=== PATIENT | female | born 1940 | race Caucasian/White ===

== ENCOUNTER → 2016-07-20 | Outpatient (CLI) | payer OTHER ==
[~2016-07-20] VITALS: Ht 170.2 cm; Wt 70.4 kg
[~2016-07-20] MED LIST: ALLER-EASE180 MG PO; AMBIEN 10 MG TA10 MG PO; ARTHROTEC 50 E1 EACH PO; BENADRYL25 MG PO; BENTYL20 MG PO; BRINTELLIX10 MG; CARISOPRODOL 3350 MG PO; CLONAZEPAM 0.50.5 M1 PO; COZAAR 50 MG TA50 M2 PO; HYDROCODON-ACE1 EAC5 PO; HYDROCODON-ACE1 EAC7 PO; IBUPROFEN 200200 M1 PO; LIDODERM 5%1 PATC1 TOP; LYRICA 50 MG50 MG PO; LYRICA 75 MG CA75 MG PO; NORCO 10-325 T1 EACH PO; OMEPRAZOLE 20 M20 M1 PO; OXYCODONE-ACET1 EAC2 PO; PREMARIN0.3 MG PO; VENTOLIN HFA 1818 GM INH; VIIBRYD20 MG PO; VITAMIN B-12500 MCG PO; VITAMIN D-32000 UNIT PO; XANAX 0.5 MG0.5 MG PO; ZANAFLEX4 MG PO; ZOLOFT50 MG PO
--- NOTE | ~2016-07-20 | HPC ---
[facility] [place] [address] PAIN MANAGEMENT CONSULTATION Name: BETO SMITH Room #: REG SHARAD Julio#: [id number] Admission: 07/20/16 Attend Phys: Tono De La Cruz MD Discharge: Date of : 36 Report #: [id number] THIS REPORT FOR: //name// CC: Nancy De La Cruz DATE OF SERVICE: 07/20/2016 Followup visit for chronic back pain with radiculopathy, mid back pain with thoracic spondylosis and management of high risk medication. She just returns to pain clinic today for her medication. She is on oxycodone 10/325 4 times daily. She also uses tizanidine 4 mg 3 times daily. She is cautious with her medications. She safeguards them. She talked today about how she carefully destroys her bottles after they have been used, so that no one knows that she takes a medication. She has grandchildren and great grandchildren who are important to her and she understands she must safeguard these medications from all house. She denies any significant side effects and is grateful for the pain relief that she achieves. She is also reporting that the epidural injection provided some relief and she understands that this will be another tool that we can use rather than increasing medication in the future. MEDICATIONS: Reviewed and reconciled from the pain clinic. She has had no hospitalizations or other critical events since her last visit. PHYSICAL EXAMINATION: GENERAL: Pleasant, alert and oriented with good sense of humor. She shows no signs of anxiety or depression, her pain score is 4 today, mostly in her low back with some radiation into her right thigh with standing. VITAL SIGNS: Blood pressure is 156/72, heart rate 70, her BMI is 24. IMPRESSION: 1. Chronic back pain with radiculopathy, improved by epidural injection. 2. Mid back pain with history of thoracic spondylosis, improved. 3. Management of high risk medication. 4. History of depression and in remission. 5. Chronic obstructive pulmonary disease. Medications renewed under terms of our agreement. [facility] [address] [place] [address] PAIN MANAGEMENT CONSULTATION Name: SARAHBETOAIDAN SULLIVAN Room #: REG CL Julio#: [id number] Admission: 07/20/16 Attend Phys: Tono De La Cruz MD Discharge: Date of : 38 Report #: [id number] PLAN: To follow up in the pain clinic in 3 months. Date of prescriptions were provided for release. By: [id number] Tono De La Cruz MD /nt
[2016-07-20 12:56] VITALS: BP 156/72
== END ==
LOC: PAIN 06:44
DX: M54.10 Radiculopathy, site unspecified (principal); M47.814 Spondylosis without myelopathy or radiculopathy, thoracic region; F32.9 Major depressive disorder, single episode, unspecified; J44.9 Chronic obstructive pulmonary disease, unspecified

== ENCOUNTER → 2016-10-19 | Outpatient (CLI) | payer OTHER ==
[~2016-10-19] VITALS: Ht 175.3 cm; Wt 70.8 kg
--- NOTE | ~2016-10-19 | HPC ---
[facility] [place] [address] PAIN MANAGEMENT CONSULTATION Name: BETO SMITH Room #: REG CLJoy Freddy.#: [id number] Admission: 10/19/16 Attend Phys: Tono De La Cruz MD Discharge: Date of : 38 Report #: [id number] THIS REPORT FOR: //name// CC: Nancy De La Cruz DATE OF SERVICE: 10/19/2016 Followup visit for management of chronic back pain with radiculopathy and spondylosis. Use of higher risk medications under terms of an opioid agreement. The patient returns to Pain Clinic today for a 15-minute followup. She remains on medication to help manage her chronic issues. She has done well with these medications. She denies any significant side effects. She takes oxycodone 10/325 four times daily and some tizanidine at bedtime. She tries not to take the oxycodone at bedtime because it activates her rather than sedates her. This is probably her only side effect and this is certainly not one that influences her during the day. She has mild constipation. She safeguards her medications carefully under terms of our opioid agreement. We discussed today the issues of addiction and role in providing these medications for her. She understands that she has responsibilities as well in using her medicine carefully and cautiously. She is grateful for it. She says if she did not have the medication, she feels that she would not get out of bed on some days, just do simple activities of daily living. PHYSICAL EXAMINATION: She is pleasant and outgoing. Her blood pressure is 159/74, heart rate is 94, respirations 16. She has pain across her low back and thoracic spine. She has some diffuse mild myofascial tenderness consistent with fibromyalgia. She complains of a new pain in the right groin. There is no evidence of hernia on physical exam. IMPRESSION: 1. Chronic intractable back pain with thoracic and lumbar spondylosis. 2. Fibromyalgia. 3. Recent right abdominal pain. I have asked her to follow up with primary to reassess. PLAN: I have renewed her medication. They have been renewed under terms of our opioid agreement. Her maximum daily dose is 16 morphine milligram equivalents, taking 4 oxycodone tablets. She will keep these medications carefully safeguarded. By: [id number] Tono De La Cruz MD /nt
[2016-10-19 10:00] VITALS: BP 159/74
== END | disposition home or self-care (01) ==
LOC: PAIN 07:20
DX: M47.26 Other spondylosis with radiculopathy, lumbar region (principal); M47.24 Other spondylosis with radiculopathy, thoracic region; M79.7 Fibromyalgia; F17.210 Nicotine dependence, cigarettes, uncomplicated

== ENCOUNTER → 2017-01-28 | Outpatient (CLI) | payer OTHER ==
[~2017-01-28] VITALS: Ht 175.3 cm; Wt 68.9 kg
--- NOTE | ~2017-01-28 | HPC ---
[facility] [place] [address] PAIN MANAGEMENT CONSULTATION Name: BETO SMITH Room #: REG Joy Julio#: [id number] Admission: 01/28/17 Attend Phys: Tono De La Cruz MD Discharge: Date of : 38 Report #: [id number] THIS REPORT FOR: //name// CC: Nancy De La Cruz DATE OF SERVICE: 01/28/2017 Followup visit for management of intractable thoracic and lumbar spondylosis and fibromyalgia. The patient is here today for renewal of her medication. She has done well. She has had no problems with her opioid agreement. She is on time with her medication carefully and guards it and has had no significant side effects of note. We discussed her opioid agreement, the opioid crisis and her medications were renewed for her today. She was here for a short visit. She has a cold and so, she was discharged after about 10 minutes. I plan to see her back in 3 months. DISCHARGE MEDICATIONS: Oxycodone 10/325, #120 for an MME of 60 morphine milligrams per day and tizanidine 4 mg 1 tablet taken as needed for muscle relaxation. All other medications reviewed and reconciled. By: [id number] T: [id number] Tono De La Cruz MD /nt
[2017-01-28 14:40] VITALS: BP 140/76
== END ==
LOC: PAIN 07:18
DX: M47.895 Other spondylosis, thoracolumbar region (principal); M79.7 Fibromyalgia

== ENCOUNTER → 2017-05-27 | Outpatient (CLI) | payer OTHER ==
[~2017-05-27] VITALS: Ht 175.3 cm; Wt 68.9 kg
[~2017-05-27] MED LIST changes: +OXYCODONE-APAP1 EAC6 PO
--- NOTE | ~2017-05-27 | HPC ---
[facility] [place] [address] PAIN MANAGEMENT CONSULTATION Name: BETO SMITH Room #: REG [facility] Freddy.#: [id number] Admission: 05/27/17 Attend Phys: Tono De La Cruz MD Discharge: Date of : 38 Report #: [id number] THIS REPORT FOR: //name// CC: Nancy De La Cruz DATE OF SERVICE: 05/27/2017 Followup visit for osteoarthritis, fibromyalgia, spondylosis of the thoracic spine and medication management. I spent 25 minutes today with the patient and her [id number]. She is here today for routine followup. She has pain at a level of about 5 with medication. She describes diffuse pain consistent with fibromyalgia mid back pain and pain in multiple joints, particularly in her knees. She had an evaluation, but is not a candidate for knee replacement. She spent 2 months in [place]. She said she was able to spend a lot of time in the pool. I talked about the benefits of warm weather and pool, but she reports that her pain was no better in [place] than it is here. Her pain is most severe in the mid back with spondylitic pain across the bra line. She has had some injections in the past that provided only temporary relief. PHYSICAL EXAMINATION: GENERAL: She is pleasant, alert and oriented, without signs of overmedication. She is wearing a mask because of a deep cough. VITAL SIGNS: Her blood pressure is 130/61, heart rate 57, respirations 14, BMI is 22.4. MUSCULOSKELETAL: She is able to move easily from sitting to standing position. She can walk without antalgic features. She has pain throughout her back, mostly in the midline about the level of her bra strap with localized tenderness on each side of midline consistent with spondylosis. This is worsened with back extension. She has diffuse myofascial tender points. She has tenderness bilaterally of the knees and pain with standing and walking. IMPRESSION: 1. Chronic mid back pain with thoracic spondylosis. 2. Fibromyalgia. 3. Osteoarthritis, bilateral knees. PQRS review also notes that she continues to smoke. She was counseled. She is now 76 years old and 2 more years, she will be at the average life expectancy for women. She can make her own decision. She understands risks to her. The patient is not a fall risk and has not fallen recently within the last [address] [address] PAIN MANAGEMENT CONSULTATION Name: BETO SMITH Room #: REG SHARAD Kim#: [id number] Admission: 05/27/17 Attend Phys: Tono De La Cruz MD Discharge: Date of : 38 Report #: [id number] She is on multiple medications, which were reviewed and reconciled. I provided for her only pain medications. She is not currently on a blood thinner. She is on a combination of a benzodiazepine along with Roxicodone. Risks have been identified. She has shown good tolerance to this combination. She has an opioid agreement signed in her chart and reviewed and we performed buccal drug screens and urine drug screens as indicated with no evidence of misuse or abuse. I renewed her medications for her and we will have her come back in 3 months. The bulk of our time today was spent in education. Her current morphine milligram equivalent dose is 60. I have convinced her today that it may be best to try and reduce this slightly to 7.5/325 four times daily on her oxycodone. This will equate to a morphine milligram equivalency of 45 MME. She is agreeable to do this and we will see how she does over the next 3 months. Side effects have been addressed as well. Follow up in 3 months. Twenty-five minutes in consultation. By: [id number] Tono De La Cruz MD /nt
[2017-05-27 09:59] VITALS: BP 130/61
== END ==
LOC: PAIN 06:59
DX: M47.894 Other spondylosis, thoracic region (principal); M79.7 Fibromyalgia; M17.0 Bilateral primary osteoarthritis of knee

== ENCOUNTER → 2017-06-23 | Outpatient (CLI) | payer OTHER | LOC: MRI 07:02 | DX: M51.34 Other intervertebral disc degeneration, thoracic region (principal); M47.26 Other spondylosis with radiculopathy, lumbar region; M41.86 Other forms of scoliosis, lumbar region ==

== ENCOUNTER → 2017-09-06 | Outpatient (CLI) | payer OTHER ==
[~2017-09-06] VITALS: Ht 175.3 cm; Wt 72.6 kg
[~2017-09-06] MED LIST changes: +CETIRIZINE HCL5 MG PO; +FLONASE 0.05%50 MCG NASAL; +HYDROCODONE-AP1 EA11 PO; +IBUPROFEN200 M1 PO; +NEURONTIN100 MG PO; +TYLENOL EXTRA500 MG PO
--- NOTE | ~2017-09-06 | HPC ---
[facility] [place] [address] PAIN MANAGEMENT CONSULTATION Name: BETO SMITH Room #: REG [facility] MMario.#: [id number] Admission: 09/06/17 Attend Phys: Tono De La Cruz MD Discharge: Date of : 38 Report #: [id number] THIS REPORT FOR: //name// CC: Nancy De La Cruz DATE OF SERVICE: 09/06/2017 Followup visit for chronic pain, osteoarthritis, fibromyalgia and spondylosis. The patient returns to pain clinic today for renewal of medication. She was last seen on 05/27/2017. She reports that she gets substantial pain relief from her medication. She feels, however, that hydrocodone was more effective for her than similar dose of oxycodone. She would like to transition. Four hydrocodone 7.5/325 tablets per day equals an MME of 30, which is lower than her current morphine milligram equivalency. I have agreed to make that switch. She reports significant analgesia and improvement in day-to-day activities. She has to help care for her and does not feel she could do so without the medication. Constipation is her only side effect. She is able to handle the checkbook. She is cognitively intact without any sort of sedation or other mental effects. Her depression is controlled. She safeguards her medication carefully. PQRS reveals that she is not a fall risk. Her pain score with medication is a 5, sharp and aching in her mid back today and at times as well in her knees and in her muscles from fibromyalgia. She does not smoke. She denies use of alcohol. BMI is 23.6. PHYSICAL EXAMINATION: Reveals a pleasant, alert female. Blood pressure 127/70, heart rate 65, respirations 16. BMI as noted at 23.6. She is able to move independently from sitting to standing position, ambulates without difficulty. Tenderness remains in the mid upper back. Forward flexion and extension all worsen pain in her thoracic spine. She has multiple myofascial tender points consistent with fibromyalgia. Complains of osteoarthritic tenderness of the knees with standing and walking. IMPRESSION: 1. Chronic back pain with thoracic spondylosis. 2. Osteoarthritis. Knees are most bothersome. 3. Fibromyalgia. I discussed smoking with her at last visit. She continues to smoke. She was counseled. [address] [address] PAIN MANAGEMENT CONSULTATION Name: BETO SMITH Room #: REG SHARAD Kim#: [id number] Admission: 09/06/17 Attend Phys: Tono De La Cruz MD Discharge: Date of : 38 Report #: [id number] Before discharge she asked if I would consider gabapentin for her. I agreed to give her a trial of 100 mg at bedtime only and she can increase that to two tablets. I am worried that she has 3 other centrally acting medications that she may take in the evening and that would make her a significant fall risk due to the dizziness associated with gabapentin. She has taken it before for neuropathy and it was recommended by her primary care physician. Precautions were given. She will hold any benzodiazepine medication at night where she may consider the use of gabapentin 100 mg. Followup visit planned in 3 months. By: [id number] Tono De La Cruz MD /nt
[2017-09-06 09:34] VITALS: BP 127/70
== END ==
LOC: PAIN 06:24
DX: M47.814 Spondylosis without myelopathy or radiculopathy, thoracic region (principal); M17.0 Bilateral primary osteoarthritis of knee; M79.7 Fibromyalgia; G89.29 Other chronic pain; Z79.899 Other long term (current) drug therapy

== ENCOUNTER → 2017-12-13 | Outpatient (CLI) | payer OTHER ==
[~2017-12-13] VITALS: Ht 175.3 cm; Wt 70.3 kg
[~2017-12-13] MED LIST changes: +BUSPIRONE HCL7.5 MG PO; +NORVASC5 MG PO; +PRAVACHOL20 MG PO
--- NOTE | ~2017-12-13 | HPC ---
[facility] [place] [address] [place] [address] PAIN MANAGEMENT CONSULTATION Name: BETO SMITH Room #: REG [facility] Freddy.#: [id number] Admission: 12/13/17 Attend Phys: Tono De La Cruz MD Discharge: Date of : 38 Report #: [id number] THIS REPORT FOR: //name// CC: Nancy De La Cruz DATE OF SERVICE: 12/13/2017 REASON FOR FOLLOWUP: Followup visit for chronic intractable back pain with spondylosis. HISTORY OF PRESENT ILLNESS: The patient is a longstanding patient of our clinic. She was first sent to us in [address] Bj Galvan. She has had longstanding thoracic spondylitic central back pain and has also suffered from what she described from day 1 as fibromyalgia. She meets criteria with multiple aches and pains, multiple tender points, depression, and some sleep disturbance. She has received some injections over the course of several years. At first, thoracic facet injections provided some temporary relief of her pain. I provided dose for her while they were helpful. She also received cervical facet injections reporting modest pain relief over a short period of time. Ultimately, she began becoming less responsive to injection therapy. We provided her with medications under terms of written opioid agreement. She was, as I noted in 09/2015, on multiple centrally acting medications including at that time Soma, Xanax, sertraline, Ambien, diphenhydramine. I tried to encourage her to limit medications that were not effective for pain. She did find good relief from oxycodone 10/325. She was allowed to take one tablet 3-4 times daily and consistently reported that the pain medication was helpful providing some temporary relief throughout the day. She showed no signs of addiction, misuse or abuse. In terms of our agreement, we have monitored her medication use and more recently have reviewed her medication use through the [facility] Prescription Drug Monitoring Program. I have reduced her medication as we have tried use the lowest effective dose to hydrocodone 7.5 mg/325 no more than 4 tablets a day, acquitting the morphine milligram equivalency of 30. She was last seen in my clinic on 09/06/2017. In the interim, she saw Dr. Robbins at the request of Dr. Francis. She tells me that she received a burning procedure in her back, which was unhelpful and most recently bilateral transforaminal epidural injections, which also did not provide much lasting relief. When she spoke with Dr. Robbins's office again, she spoke with her nurse practitioner who recommended exercises. She is here today in our clinic requesting [place] [address] PAIN MANAGEMENT CONSULTATION Name: BETO SMITH Room #: REG SHARAD Kim#: [id number] Admission: 12/13/17 Attend Phys: Tono De La Cruz MD Discharge: Date of : 38 Report #: [id number] MEDICATIONS: All medications were reviewed and reconciled. She remains on Tylenol, ibuprofen 400 mg b.i.d., Zyrtec, tizanidine, losartan, omeprazole, alprazolam b.i.d. for anxiety, Zoloft 50 mg two tablets daily, cholecalciferol, vitamin B12, albuterol, and zolpidem 10 mg at bedtime. ALLERGIES: SHRIMP. PHYSICAL EXAMINATION: GENERAL: Somewhat anxious female. She does not show signs of overmedication. She is discouraged by her chronic pain. VITAL SIGNS: Her blood pressure 127/70, heart rate 65, respirations 16. She is 5 feet 9 inches, 160 pounds. BMI is 23.6. BACK: Examination of the cervical, thoracic, and lumbar spine reveals tenderness across the mid thoracic region without radiculopathy. Pain is made worse with flexion and extension. Pain is overlying in the areas of multiple thoracic facet joints. She also has pain across the lumbosacral segment and tenderness. It is generalized and broad. She complains of some pain in her legs today as well. CARDIAC: She has some straight leg raising discomfort, but has multiple myofascial tender points in the upper extremities, upper back, mid back, lower back, hips, and legs consistent with her longstanding diagnosis of fibromyalgia. She has tenderness of joints including knees and hips. Her gait is antalgic. IMPRESSION: 1. Chronic intractable pain, multiple pain generators. 2. History of osteoarthritis. Knees are most bothersome. 3. Fibromyalgia. 4. Thoracic spondylosis, lumbar spondylosis. 5. Opioid medications provided under terms of written opioid agreement. We have gradually reduced her reliance on these medications and her current morphine milligram equivalency is 30. RECOMMENDATIONS: I will renew her medications, but I would like to see what was done in the other pain clinic before we make further recommendations. I have asked for her to sign a release so that Dr. Robbins's records can be referred back to our clinic. She was given the option to continue to follow with Dr. Robbins for chronic pain management. Dr. Francis can also write medication if that is all that is necessary. I will see her back in 1 week. By: [id number] Tono De La Cruz MD /andrea
[2017-12-13 15:02] VITALS: BP 133/56
== END ==
LOC: PAIN 07:02
DX: G89.4 Chronic pain syndrome (principal); M47.895 Other spondylosis, thoracolumbar region; M79.7 Fibromyalgia; Z87.39 Personal history of other diseases of the musculoskeletal system and connective tissue; Z79.891 Long term (current) use of opiate analgesic

== ENCOUNTER → 2017-12-20 | Outpatient (CLI) | payer OTHER ==
[~2017-12-20] VITALS: Ht 175.3 cm; Wt 74.2 kg
[~2017-12-20] MED LIST changes: +NEURONTIN 300300 M1 PO
--- NOTE | ~2017-12-20 | HPC ---
[facility] [place] [address] PAIN MANAGEMENT CONSULTATION Name: BETO SMITH Room #: REG CL M..#: [id number] Admission: 12/20/17 Attend Phys: Tono De La Cruz MD Discharge: Date of : 38 Report #: [id number] THIS REPORT FOR: //name// CC: Nancy De La Cruz DATE OF SERVICE: 12/20/2017 CHIEF COMPLAINT: Followup visit for chronic back pain and severe depression. The patient returns to pain clinic today and we have retrieved some of the information from her more recent visits to the pain clinic at [place]. Dr. Robbins performed a left L5 transforaminal epidural injection and a right L3 transforaminal epidural injection as well as right L3-L4 and left L3-L4 medial branch radiofrequency ablations as well as L5 dorsal ramus ablations. The patient reports that her pain remains severe both in the low back and in the upper back. Over the course of the 5 years that I have treated her, she has mostly complained of pain in the thoracic region. This was not addressed by Dr. Robbins. Pain is more present in the upper back as she has complained of several years of mid thoracic pain with spondylitic changes there. Previous injection treatments have also been unhelpful in that area. Over the years, we have provided her with hydrocodone 7.5/325 four tablets a day for a total morphine milligram equivalency of 30 MME. She has shown no misuse or abuse. Today, she reports to me that the medication is helpful. Without it, she feels that she would be in bed all day long. She has constipation, but this is chronic. She and her buy stool softener or laxative medication in a 600 tablet bottle. She says it effectively controls her side effect. She is able to do more with pain medication. She had family members over for Wednesday meal yesterday and she cooked the meal for them. Without the medication, she does not feel she would be able to do that. She understands the importance of taking medications as prescribed and safeguards her medications carefully. We have talked about her polypharmacy. Finally, it is clear that the patient suffers from chronic depression. She is on 2 antidepressants and she also is on anxiolytic medication both benzodiazepine and more recently buspirone. She cried during our office visit telling me that she was nearly bankrupt. She was unable to afford certain medicines and treatments. We talked about massage treatment with physical therapist, but she reported that it was inaccessible to her because it costs 16 dollars per visit. [address] [address] PAIN MANAGEMENT CONSULTATION Name: SARAHBETO SULLIVAN Room #: REG [facility] M.Juan R.#: [id number] Admission: 12/20/17 Attend Phys: Tono De La Cruz MD Discharge: Date of : 38 Report #: [id number] I did not badge her about her smoking; however, she continues to smoke roughly a pack per day and told me defiantly that she did not want to hear about smoking that she was going to smoke for the rest of her life. PHYSICAL EXAMINATION: She is depressed. Blood pressure 145/86, heart rate 69, respirations 16. BMI 24. She reports her pain intensity today at 2; although, she told me later in tears that the pain was severe. She has not fallen and is not a fall risk. She is on no blood thinners. She has signed an opioid agreement, which was reviewed on 09/25/2015. IMPRESSION: 1. Chronic intractable back pain. Multiple pain generators mostly spondylitic. 2. History of depression and anxiety disorder. She is on polypharmacy regimen for these conditions. 3. Fibromyalgia. 4. Opioid medications provided under terms of written opioid agreement. Total daily MME is 30. This is considered low to moderate dose per the CDC guidelines. I renewed her medication for 3 months. I would recommend that she not pursue further injection and treatments at this time. By: [id number] Tono De La Cruz MD /nt
[2017-12-20 10:47] VITALS: BP 145/86
== END ==
LOC: PAIN 07:10
DX: M47.816 Spondylosis without myelopathy or radiculopathy, lumbar region (principal); G89.4 Chronic pain syndrome; M79.7 Fibromyalgia; F32.9 Major depressive disorder, single episode, unspecified; F41.9 Anxiety disorder, unspecified; Z79.891 Long term (current) use of opiate analgesic; Z79.899 Other long term (current) drug therapy

== ENCOUNTER → 2018-03-14 | Outpatient (CLI) | payer OTHER ==
[~2018-03-14] VITALS: Ht 175.3 cm; Wt 66.1 kg
[~2018-03-14] MED LIST changes: +KEFLEX500 M1 PO
[2018-03-14 13:00] VITALS: BP 153/69
--- NOTE | 2018-03-14 13:32 | NUR ---
Pain Clinic Assessment: 1. History of Osteoarthritis: GENERALIZED History of Rheumatoid Arthritis: Not Applicable 2. Height: 5 ft. 9 in. 175.3 cm. Weight: 145.8 lb. oz. 66.134 kg. Patient's BMI: 21.5 3. Vital Signs: BP: 153/69 Pulse: 65 Resp: 18 Temp: 02 Sat: 96 ECG Mon: 4. Pain Intensity: 8 5. Fall Risk: Dizziness: Y Needs help standing or walking: N Fallen in the last 3 months: N Fall risk comments: 6. Patient on Blood Thinner: None 7. History of Hypertension: Y 8. Opioid Therapy greater than 6 weeks: Y Opiate Contract Signed: 09/25/15 9. Risk Assessment Tool Provided: 1 -LOW RISK 10. Functional Assessment Tool: 11. Recreational Drug Use: Unknown Drug Type: Tobacco Use: Current Every Day Smoker Tobacco Type: Amount or Packs/day: How Many Years: Alcohol Use: No Frequency: Quant:
--- NOTE | 2018-03-16 15:34 | HPC ---
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 The patient is here today requesting thoracic treatments. I have previously provided her with injections in the thoracic region using both a 3-level bilateral facet injection approach as well as a single thoracic epidural attempt at alleviating her chronic back pain. She responded favorably to her facet injections. The pain is not complete and the pain relief does not last, but she does feel that she had months of pain improvement. She remains on medication, which I provided under terms of written agreement, hydrocodone 7.5/325 four tablets daily. We have discussed the opioid crisis on many occasions, the importance of safeguarding medications and keeping them locked up. I have also discussed the fact that she uses alprazolam on a p.r.n. basis for anxiety, provided by another physician, her primary doctor, Dr. Nancy Francis. While we know that this combination could be dangerous in higher doses in the patients who are intolerant to the medication. She has used the combination for a number of years without issue. She may need to discuss this further with her pharmacist. For the meantime, I have no better way to manage her pain more effectively to allow her to remain functional. It is her function that is most important to her. She wants to continue to be active around the house. She is able to provide for her own cares, hygiene, dressing and also can do some cooking and cleaning. She is not a fall risk. She has not fallen recently. She does not smoke or use alcohol. She has been taking medication for quite some time on an opioid agreement. PHYSICAL EXAMINATION: GENERAL: Pleasant, alert and oriented. VITAL SIGNS: Blood pressure is 153/69, heart rate 65 and O2 sat is 100%. Respirations are 18. MUSCULOSKELETAL: She moves from sitting to standing position, ambulates without too much difficulty. She has tenderness in an area where she has mild kyphosis of the thoracic spine. There is localized tenderness, which has been marked by her around the T7-T8 region. She has pain along the paravertebral spine. Pain is worse with back extension. It does not radiate anteriorly. There does not appear to be any radicular component. She has some pain [address] [address] PAIN MANAGEMENT CONSULTATION Name: BETO SMITH Room #: REG SHARAD Kim#: [id number] Admission: 03/14/18 Attend Phys: Tono De La Cruz MD Discharge: Date of : 38 Report #: [id number] localized in the lumbosacral region, worse on the left than the right. IMPRESSION: 1. Spondylosis. This involves both thoracic and lumbar region. 2. History of depression and anxiety. 3. Fibromyalgia. 4. Management of high-risk medication under terms of written opioid agreement under the CDC guidelines. RECOMMENDATIONS: 1. I reviewed the importance of managing her medications carefully and the risks and benefits there. 2. Counseled regarding chronic depression and anxiety. 3. Thoracic facet injections, T6-T7, T7-T8 and T8-T9, under fluoroscopic guidance, bilateral. PROCEDURE: After informed consent, she was taken to fluoroscopic suite, where she was placed prone. Skin prepped with ChloraPrep. Skin anesthetized first over the left facet joints above mentioned. A 25-gauge needle was advanced into the recess of the facet joint using AP and lateral views. After proper placement and after negative aspiration, I injected each joint with 0.5 mL of 0.5% bupivacaine mixed with 15 mg of triamcinolone. Coulters were withdrawn. We then repeated the same procedure on the right using a similar technique at the T6-T7, T7-T8 and T8-T9 facet joints. She tolerated the procedure well. She was taken to the recovery room after the procedure for observation. Her presenting pain score was 8/10, discharge pain score is 3. Followup visit planned on an as-needed basis 3 months for medication management. She will call if there are any questions or complications or problems. For the moment, it appears that everything has gone very well today. <ELECTRONICALLY SIGNED> By: Tono De La Cruz MD 03/16/18 1534 [id number] [id number] Tono De La Cruz MD /nt
== END | disposition home or self-care (01) ==
LOC: PAIN 07:07
DX: M47.894 Other spondylosis, thoracic region (principal); M47.896 Other spondylosis, lumbar region; F41.9 Anxiety disorder, unspecified; F32.9 Major depressive disorder, single episode, unspecified; M79.7 Fibromyalgia; F17.210 Nicotine dependence, cigarettes, uncomplicated; Z88.8 Allergy status to other drugs, medicaments and biological substances; Z79.899 Other long term (current) drug therapy

== ENCOUNTER → 2018-06-23 | Outpatient (CLI) | payer OTHER ==
[~2018-06-23] VITALS: Ht 175.3 cm; Wt 71.3 kg
[2018-06-23 09:26] VITALS: BP 141/69
--- NOTE | 2018-06-23 09:47 | NUR ---
Pain Clinic Assessment: 1. History of Osteoarthritis: GENERALIZED BILATERAL KNEES RIGHT SHOULDER LEFT THUMB History of Rheumatoid Arthritis: Not Applicable 2. Height: 5 ft. 9 in. 175.3 cm. Weight: 157.2 lb. oz. 71.305 kg. Patient's BMI: 23.2 3. Vital Signs: BP: 141/69 Pulse: 60 Resp: 14 Temp: 02 Sat: 94 ECG Mon: 4. Pain Intensity: 2 NOW 9 THIS AM/ADL'S 5. Fall Risk: Dizziness: Y Needs help standing or walking: N Fallen in the last 3 months: N Fall risk comments: 6. Patient on Blood Thinner: None 7. History of Hypertension: Y 8. Opioid Therapy greater than 6 weeks: Y Opiate Contract Signed: 09/25/15 9. Risk Assessment Tool Provided: 1 -LOW RISK 10. Functional Assessment Tool: 11. Recreational Drug Use: Unknown Drug Type: Tobacco Use: Current Every Day Smoker Tobacco Type: Amount or Packs/day: How Many Years: Alcohol Use: No Frequency: Quant:
--- NOTE | 2018-06-24 08:19 | HPC ---
[facility] [address] [place] [address] PAIN MANAGEMENT CONSULTATION Name: BETO SMITH Room #: REG [facility] Julio#: [id number] Admission: 06/23/18 ������������������ Attend Phys: Chiquis Keys Discharge: ������������������ Date of : 38 Report #: [id number] THIS REPORT FOR: //name// CC: Chiquis Clarknifer Penny DATE OF SERVICE: 06/23/2018 CHIEF COMPLAINT: Chronic mid back pain with thoracic spondylosis and spondylitic pain. HISTORY OF PRESENT ILLNESS: This is a very pleasant 77-year-old female who returns to the pain clinic for refill of her medications. She tells me that the majority of her pain is in her mid upper back. She does though have some lower back and right knee pain. She has had numerous injections in her thoracic region for her thoracic spondylosis, most recently in March. Dr. Tono De La Cruz performed a bilateral three level facet injections on her. She tells me that they were 100% relief for 3-4 weeks. This is the best that she had had in a long time. She said when the pain did return after about a month it was immediately back to her old pain, but while it was better she had 100% relief. She is leery to have another injection for quite some time because she suffers from osteopenia, so she is thinking she may try and have one again in December. Today, she is here for her medication refill. She takes her hydrocodone about 4 times a day and does quite well with that as well as her gabapentin. She denies any problems with constipation if she takes her Senokot and stool softeners on a regular basis. Her pain score today is a 2/10, but it was 9 before she took her medicines. She says that sitting and wearing a bra and standing effect that thoracic area, but medications and heat and not wearing a brassiere are helpful. ALLERGIES: SHRIMP. CURRENT MEDICATIONS: Hydrocodone 7.5/325 up to 4 times a day p.r.n., gabapentin 300 mg at bedtime and 100 mg b.i.d. p.r.n., Keflex 500 mg twice a day, pravastatin 20 mg daily, Norvasc 5 mg daily, buspirone 7.5 mg b.i.d., ibuprofen p.r.n., Zyrtec daily, Flonase as needed, losartan 50 mg daily, omeprazole 20 mg daily, Xanax 0.5 mg b.i.d., Zoloft 100 mg daily, vitamin D daily, vitamin B12 daily and Ambien p.r.n. PQRS: 1. She has arthritic changes in her back, knees, shoulder and hands. Denies any rheumatoid arthritis. 2. Height is 5 feet 9 inches, weight is 157, BMI is 23. 3. VITAL SIGNS: Blood signs 141/69, pulse is 60, respirations 14, oxygen sat is 94. 4. Pain score is 2/10 with medications, 9/[address] [address] PAIN MANAGEMENT CONSULTATION Name: SARAHBETO PENNY Room #: REG CLJoy Kim#: [id number] Admission: 06/23/18 ������������������ Attend Phys: Chiquis Keys Discharge: ������������������ Date of : 38 Report #: [id number] 5. Dizziness. She does suffer some occasionally. She has not fallen in the last 3 months and does not need help with walking. 6. The patient is not on any blood thinners, but does take medicine for hypertension. Her opiate therapy is greater than 6 weeks; therefore, an opioid signed contract is on the chart. 7. Risk assessment tool is low. Functional assessment is 49/70. 8. Recreational drug use: She does not. She currently does smoke and does not drink alcohol. We did check the prescription monitoring system. The patient is filling appropriately from her medications from Dr. Tono De La Cruz for her narcotics. We did discuss that we will do a random drug screen on her in the future that per the clinic guidelines and the CDC recommendations, we would like to have one on her at least once a year. PHYSICAL EXAMINATION: GENERAL: This is a well-developed, well-nourished, pleasant female who is alert and orientated and appears her stated age. HEENT: Normocephalic, atraumatic. Extraocular eye muscles are intact. Mucous membranes are moist. MUSCULOSKELETAL: She moves from sitting to standing position without too much difficulty. She complains of tenderness in areas across her thoracic spine around the T7-T8 region. She has mild kyphosis of the lumbar spine, patient's pain increases with back extension. The patient does have some pain and tenderness across her lumbar region as well. Her lower extremity strength judged to be 5/5 in all major muscle groups. She walks with a slightly antalgic gait. IMPRESSION: 1. Spondylosis this involves the thoracic and lumbar regions. 2. History of depression and anxiety. 3. Fibromyalgia. 4. Management of high-risk medications under terms a written opioid agreement. We reviewed the fact that opiate medications are being used to provide analgesia adequate to support activities of daily living, not attempting to achieve a specific pain score on the 0-10 Visual Analog Scale. The current opiate medications are providing sufficient analgesia to allow the patient to participate in activities of daily living. The patient is not exhibiting any aberrant behavior suggestive of drug diversion. The patient is not having any adverse reactions to medications. The patient is not suffering from daytime somnolence or mental acuity changes. The patient is managing opiate-induced constipation with appropriate [id number] agents and dietary considerations. The patient was counseled on concern for caution with operating a motor vehicle while using opiate medications. [facility] [address] [place] [address] PAIN MANAGEMENT CONSULTATION Name: BETO SMITH Room #: REG CLJoy Kim#: [id number] Admission: 06/23/18 ������������������ Attend Phys: Chiquis Keys Discharge: ������������������ Date of : 38 Report #: [id number] A physical exam was performed and the patient's functional status was evaluated. All patients with back pain were advised against the bed rest greater than 4 days and were advised to return to normal activities. Pain score assessment was noted and the treatment plan was reviewed with the patient. All current medications, both prescribed and OTC were reviewed and reconciled on the electronic medical record. Tobacco screening was accomplished and smoking cessation was advised when indicated. BMI was noted and diet/exercise modification was recommended for all patients following outside normal parameters. I reviewed with the patient today their responsibilities to safeguard prescription medications, reviewed their responsibility to utilize medications only as prescribed by the physician. They are to seek and receive pain medications only from 1 physician group ([facility]). They are to use 1 pharmacy and keep the clinic informed if they change pharmacies. Their responsibilities include making followup visits in a timely fashion and to avoid abrupt discontinuation of medication usage. Their responsibilities further include bringing their medications (bottles from the pharmacy with residual pills) to the visit for possible confirmation of pill counts and the patient understands it is their responsibility to submit to random drug screens to ensure both that the medications prescribed are present, and that no other controlled substances are present. All prescriptions provided today were generated electronically. PLAN: 1. We discussed treatment options with the patient. She tells me that she is doing quite well on her current medication regimen and would like refills today. She finds they are very beneficial, but she recently had the most benefit from her injection that relieved her of 100% of her pain for about a month. She will try to repeat that injection closer to the holiday season. 2. Scripts given today for hydrocodone 7.5/325, #120 to be released today for an 8-week and gabapentin 300 mg 1 p.o. at bedtime, #30 with 2 additional refills. The patient does not need the 100 mg tablets of gabapentin today. We will call those in as needed. 3. We discussed the CDC guidelines. The patient falls below their morphine mEq at 30 morphine mEq a day, which is very beneficial for her. We will check a drug screen on her in the future. The patient was advised of this. 4. Dr. Tono De La Cruz did see the patient today as well as collaborating care. ��������������������������������������������� <ELECTRONICALLY SIGNED> ���������������������������������������� By: Chiquis Keys ��������������������������������������������� 06/24/18 0819 [id number] Chiquis Keys /andrea
== END ==
LOC: PAIN 06:46
DX: M47.895 Other spondylosis, thoracolumbar region (principal); M79.7 Fibromyalgia; Z79.899 Other long term (current) drug therapy; Z86.59 Personal history of other mental and behavioral disorders

== ENCOUNTER → 2018-09-22 | Outpatient (CLI) | payer OTHER ==
[~2018-09-22] VITALS: Ht 167.6 cm; Wt 70.4 kg
--- NOTE | ~2018-09-22 | HPC ---
[facility] [address] [place] [address] PAIN MANAGEMENT CONSULTATION Name: BETO SMITH Room #: REG [facility] Freddy.#: [id number] Admission: 09/22/18 Attend Phys: Tono De La Cruz MD Discharge: Date of : 38 Report #: [id number] THIS REPORT FOR: //name// CC: Nancy De La Cruz DATE OF SERVICE: 09/22/2018 CHIEF COMPLAINT: Right knee pain. HISTORY OF PRESENT ILLNESS: The patient has chronic pain with multiple pain generators. I have seen her for a number of years and have treated her mostly for thoracic radiculopathy and spondylosis. She has responded favorably at times to injections. She had radiofrequency with Dr. Robbins, which she said was miserable and did not provide as much relief that she had hoped. Her #1 pain today is not her back, although it is still bothersome. It is her fibromyalgia in particular her right knee. She scores her knee pain as an 8-9/10. She was told that she should do her strengthening exercises, which she is trying to do. She had some trouble with that due to the fact that she has some COPD. Her pain is 5/10 in her knees. She describes aching and sharp. She has difficulty going up and down steps and standing. All medications were reviewed and reconciled. She takes hydrocodone 7.5, gabapentin 300 mg at bedtime, buspirone 7.5 mg daily, alprazolam twice daily chronically, sertraline 100 mg daily and zolpidem. All other medications of noncentrally acting nature are reviewed and reconciled. We have discussed the interaction of benzodiazepines and opioids. PQRS REVIEW: 1. Significant generalized osteoarthritis involving multiple joints. 2. She is 5 feet 6 inches, 155 pounds, BMI of 25.1. 3. Blood pressure 124/73, heart rate 67. 4. Pain intensity 5/10. 5. She is not a fall risk. 6. She is on no blood thinners. 7. History of hypertension treated by primary care physician. 8. Opioid agreement has been signed and she understands her important responsibilities in safeguarding her medication. She denies significant side effects and is grateful for the improvement in pain and activities that the medication affords her. 9. She is at low risk for addiction by the opioid risk tool. [address] [address] PAIN MANAGEMENT CONSULTATION Name: BETO SMITH Room #: REG CLI [facility]#: [id number] Admission: 09/22/18 Attend Phys: Tono De La Cruz MD Discharge: Date of : 38 Report #: [id number] 10. Functional assessment score is 49/70. 11. She continues to smoke and was counseled. She denies use of alcohol. PHYSICAL EXAMINATION: VITAL SIGNS: As noted above. She is loquacious and outgoing: Pleasant, alert and oriented. HEENT: Within normal limits. Pupils are equal, round and reactive to light. EOMs are intact. MUSCULOSKELETAL: She moves from sitting to standing position, walks with antalgic features, owing to the pain in her knee. Tenderness remains in the area of her back on each side of the spinous processes from T6 through about T9. She has pain with both flexion and extension of the spine. Examination of the right knee reveals tenderness in both the medial and lateral aspect of the knee. There is mild crepitus with flexion and extension. There is no Mcadams cyst. Strength in the lower extremities is 5/5. Gait is antalgic. IMPRESSION: 1. Osteoarthritis involving the right knee. 2. Fibromyalgia. 3. Spondylosis of the thoracic spine. 4. Management of high risk medication. PLAN: I will renew medications for her generalized aches and pains. We discussed the importance of safeguarding requirements. I have reviewed the prescription drug monitoring information and there are no unexpected entries. A urine drug screen will be performed at my discretion. A discussion about alprazolam, benzodiazepine and hydrocodone was reviewed. She has taken safely in combination, but the doses should be kept small. PROCEDURE: Right knee injection under fluoroscopic guidance. She was taken to fluoroscopic suite. Skin prepped with ChloraPrep. A lateral approach was utilized. Skin was anesthetized and a 25-gauge needle gently advanced into the intraarticular knee joint lateral capsule. After negative aspiration, I injected 0.25 mL of Omnipaque rather to demonstrate an arthrogram, was then followed by 3 mL of 0.5% bupivacaine mixed with 40 mg of triamcinolone. She tolerated the procedure well and was observed for 45 minutes and discharged. There were no complications and pain was markedly reduced. Follow up as needed. By: [id number] Tono De La Cruz MD /nt
[2018-09-22 09:02] VITALS: BP 124/73
--- NOTE | 2018-09-22 09:11 | NUR ---
Pain Clinic Assessment: 1. History of Osteoarthritis: GENERALIZED BILATERAL KNEES RIGHT SHOULDER LEFT THUMB History of Rheumatoid Arthritis: Not Applicable 2. Height: 5 ft. 6 in. 167.6 cm. Weight: 155.2 lb. oz. 70.398 kg. Patient's BMI: 25.1 3. Vital Signs: BP: 124/73 Pulse: 67 Resp: 20 Temp: 02 Sat: 92 ECG Mon: 4. Pain Intensity: 5 5. Fall Risk: Dizziness: Y Needs help standing or walking: N Fallen in the last 3 months: N Fall risk comments: 6. Patient on Blood Thinner: None 7. History of Hypertension: Y 8. Opioid Therapy greater than 6 weeks: Y Opiate Contract Signed: 09/25/15 9. Risk Assessment Tool Provided: 1 -LOW RISK 10. Functional Assessment Tool: 11. Recreational Drug Use: Unknown Drug Type: Tobacco Use: Current Every Day Smoker Tobacco Type: Cigarettes Amount or Packs/day: 3/4 PACK How Many Years: Alcohol Use: No Frequency: Quant:
== END | disposition home or self-care (01) ==
LOC: PAIN 09-21 10:28
DX: M17.11 Unilateral primary osteoarthritis, right knee (principal); G89.29 Other chronic pain; M79.7 Fibromyalgia; M47.894 Other spondylosis, thoracic region; M19.90 Unspecified osteoarthritis, unspecified site; F17.210 Nicotine dependence, cigarettes, uncomplicated; Z79.891 Long term (current) use of opiate analgesic; Z79.899 Other long term (current) drug therapy; Z98.890 Other specified postprocedural states

== ENCOUNTER → 2018-12-12 | Outpatient (CLI) | payer OTHER ==
[~2018-12-12] VITALS: Ht 167.6 cm; Wt 72.0 kg
[~2018-12-12] MED LIST changes: +ASPERCREME1 EACH TOP
--- NOTE | ~2018-12-12 | HPC ---
[facility] [place] [address] PAIN MANAGEMENT CONSULTATION Name: BETO SMITH Room #: REG SHARAD Julio#: [id number] Admission: 12/12/18 Attend Phys: Tono De La Cruz MD Discharge: Date of : 38 Report #: [id number] THIS REPORT FOR: //name// CC: Nancy De La Cruz DATE OF SERVICE: 12/12/2018 Followup visit for thoracic spondylosis. The patient returns to pain clinic today for repeat thoracic facet injections. These have been helpful for her in the past. She responded favorably to her last injections with extended relief. PQRS: 1. Positive for generalized osteoarthritis involving knees, shoulder and thumb. 2. BMI 25.6. 3. Vital signs: Blood pressure 167/82, heart rate 71. 4. Pain intensity 6/10. 5. She has not fallen in the last 3 months. 6. No blood thinners. 7. History of hypertension. 8. Opioid agreement signed in 2016. I provided with medications under terms of written agreement including hydrocodone 7.5/325, 100 tablets per month and gabapentin 100 mg b.i.d. 300 mg at bedtime. I have also agreed to provide her with lidocaine patches. 9. Low risk for addiction by the opioid risk tool 10. Functional assessment score is 49. 1`. Continues to smoke half a pack a day and denies use of alcohol. IMPRESSION: 1. Chronic thoracic pain with thoracic spondylosis. 2. Management of high risk medication. 3. Osteoarthritis. 4. Fibromyalgia. PROCEDURE: Bilateral facet injections. After informed consent, she was taken to fluoroscopic suite, placed prone, skin prepped with ChloraPrep. Skin anesthetized first on the left. A 25-gauge needle was advanced into the facet inferior recess at T6-T7, T7-T8 and T8-T9 under fluoroscopic guidance. After negative aspiration, I injected each joint with Omnipaque to demonstrate an absence of vascular uptake. Arthrograms were noted. The needles reached injected then 0.5 mL of 0.5% bupivacaine and 15 mg of triamcinolone. [place] were withdrawn. C-arm was slightly repositioned and the patient was allowed to reposition as well. We repeated the procedure on the [facility] [address] [place] [address] PAIN MANAGEMENT CONSULTATION Name: SARAHBETO NATE [facility] [id number] Admission: 12/12/18 Attend Phys: Tono De La Cruz MD Discharge: Date of : 38 Report #: [id number] right. Using same technique. There were no complications. A total of 6 facet joints were injected in the thoracic region. Her pain score on admission was 6 and on discharge was 2. We will continue to prescribe medication and provide injections as necessary. By: [id number] Tono De La Cruz MD /nt
[2018-12-12 12:54] VITALS: BP 167/82
--- NOTE | 2018-12-12 13:00 | NUR ---
Pain Clinic Assessment: 1. History of Osteoarthritis: GENERALIZED BILATERAL KNEES RIGHT SHOULDER LEFT THUMB History of Rheumatoid Arthritis: Not Applicable 2. Height: 5 ft. 6 in. 167.6 cm. Weight: 158.8 lb. oz. 72.031 kg. Patient's BMI: 25.6 3. Vital Signs: BP: 167/82 Pulse: 71 Resp: 18 Temp: 02 Sat: 90 ECG Mon: 4. Pain Intensity: 6 5. Fall Risk: Dizziness: Needs help standing or walking: Fallen in the last 3 months: Fall risk comments: 6. Patient on Blood Thinner: None 7. History of Hypertension: Y 8. Opioid Therapy greater than 6 weeks: Y Opiate Contract Signed: 09/25/15 9. Risk Assessment Tool Provided: 1 -LOW RISK 10. Functional Assessment Tool: 11. Recreational Drug Use: Unknown Drug Type: Tobacco Use: Current Every Day Smoker Tobacco Type: Cigarettes Amount or Packs/day: 1/2 PACK How Many Years: 60 Alcohol Use: No Frequency: Quant:
== END | disposition home or self-care (01) ==
LOC: PAIN 06:52
DX: M47.814 Spondylosis without myelopathy or radiculopathy, thoracic region (principal); G89.29 Other chronic pain; I10 Essential (primary) hypertension; M79.7 Fibromyalgia; M19.90 Unspecified osteoarthritis, unspecified site; F17.210 Nicotine dependence, cigarettes, uncomplicated; Z98.890 Other specified postprocedural states; Z79.891 Long term (current) use of opiate analgesic; Z85.828 Personal history of other malignant neoplasm of skin; Z79.899 Other long term (current) drug therapy

== ENCOUNTER → 2019-03-30 | Outpatient (CLI) | payer OTHER ==
[~2019-03-30] VITALS: Ht 167.6 cm; Wt 67.6 kg
[2019-03-30 13:25] VITALS: BP 135/62
--- NOTE | 2019-03-30 13:43 | NUR ---
Pain Clinic Assessment: 1. History of Osteoarthritis: GENERALIZED BILATERAL KNEES RIGHT SHOULDER LEFT THUMB History of Rheumatoid Arthritis: Not Applicable 2. Height: 5 ft. 6 in. 167.6 cm. Weight: 149.0 lb. oz. 67.586 kg. Patient's BMI: 24.1 3. Vital Signs: BP: 135/62 Pulse: 61 Resp: 14 Temp: 02 Sat: 99 ECG Mon: 4. Pain Intensity: 4 5. Fall Risk: Dizziness: N Needs help standing or walking: Y Fallen in the last 3 months: N Fall risk comments: 6. Patient on Blood Thinner: None 7. History of Hypertension: Y 8. Opioid Therapy greater than 6 weeks: Y Opiate Contract Signed: 09/25/15 9. Risk Assessment Tool Provided: 1 -LOW RISK 10. Functional Assessment Tool: 11. Recreational Drug Use: Unknown Drug Type: Tobacco Use: Current Every Day Smoker Tobacco Type: Cigarettes Amount or Packs/day: 1/2 How Many Years: Alcohol Use: No Frequency: Quant:
--- NOTE | 2019-04-03 12:50 | HPC ---
[facility] [place] [address] PAIN MANAGEMENT CONSULTATION Name: BETO SMITH Room #: REG [facility] Freddy.#: [id number] Admission: 03/30/19 Attend Phys: Chiquis Keys Discharge: Date of : 38 Report #: [id number] THIS REPORT FOR: cc: Nancy Francis MD, Jennifer S. MD Hocker, Amanda CNS THIS REPORT FOR: //name// CC: Chiquis Francis DATE OF SERVICE: 03/30/2019 CHIEF COMPLAINT: Thoracic spondylosis and lumbar radiculopathy. HISTORY OF PRESENT ILLNESS: This is a very pleasant 78-year-old female who returns to the pain clinic today for refill of her medications and to discuss possible injections. The patient reports a pain score of 4/10 currently, but she is reporting that her pain has flared in her lower back, radiating down into her buttocks into her right leg to her calf. She states that she has been moving since we have seen her last to a new house. She has been busy packing and unpacking which has flared her symptoms. The patient states that the thoracic facet injections that Dr. Tono De La Cruz performed on her in December were helpful for 1 day and then her pain returned. She also stated that she has recently had a right knee steroid injection 2 weeks ago from her orthopedic that has not been beneficial either. Today, she would like refills of her hydrocodone and gabapentin. She is here with her daughter today. ALLERGIES: SHRIMP. CURRENT LIST OF MEDICATIONS: Aspercreme, hydrocodone 7.5/325 p.r.n., gabapentin 100 mg b.i.d., pravastatin, amlodipine, buspirone, Tylenol Extra Strength, ibuprofen, Zyrtec, Cozaar, omeprazole, alprazolam half a tablet daily, sertraline, vitamin D, vitamin B12, Ambien 5 mg, and gabapentin 300 mg at bedtime. PQRS: 1. She has generalized osteoarthritis in her knees, shoulders and hands. Denies any rheumatoid arthritis. 2. Height is 5 feet 6 inches, weight is 149, and BMI is 24. 3. Vital signs 135/62, pulse is 61, respirations 14, oxygen sat is 99. 4. Pain score is 4/10. 5. Denies dizziness. Does use a walker for ambulation, has not fallen in the last 3 months. 6. The patient is not on any blood thinners, but does take [place] [address] PAIN MANAGEMENT CONSULTATION Name: BETO SMITH [id number] Admission: 03/30/19 Attend Phys: Chiquis Keys Discharge: Date of : 38 Report #: [id number] 7. Opioid therapy is greater than 6 weeks; therefore, an opioid signed contract is on the chart. Her risk assessment tool is low. Functional assessment is 49/70. 8. Recreational drug use, she denies. She is a current smoker of half a pack of cigarettes a day and does not drink alcohol. According to the prescription monitoring system, the patient is filling appropriately for her medications, filling them in a timely fashion. Her current morphine mEq per day is 30 MME or below. PHYSICAL EXAMINATION: GENERAL: This is alert and orientated 78-year-old female who appears her stated age, placing her current pain score at 4/10. HEENT: Normocephalic, atraumatic. Extraocular eye muscles are intact. Mucous membranes are moist. MUSCULOSKELETAL: The patient complains of pain in her lumbar spine that radiates into her left buttock following the right leg following the L3-L4 dermatomal distribution. The patient also has tenderness in her right knee, worse with standing and walking. Her lower extremity strength judged to be 5/5 in all major muscle groups. Her gait is antalgic, using a walker at all times. She does also have tenderness in the area of her spinal processes from the T6 through T9 and pain with flexion and extension. IMPRESSION: 1. Osteoarthritis. 2. Fibromyalgia. 3. Chronic thoracic pain with thoracic spondylosis. 4. Lumbar radiculopathy. 5. Management of high risk medications under terms of written opioid agreement. 6. We reviewed the fact that opiate medications are being used to provide analgesia adequate to support activities of daily living, not attempting to achieve a specific pain score on the 0-10 Visual Analog Scale. The current opiate medications are providing sufficient analgesia to allow the patient to participate in activities of daily living. The patient is not exhibiting any aberrant behavior suggestive of drug diversion. The patient is not having any adverse reactions to medications. The patient is not suffering from daytime somnolence or mental acuity changes. The patient is managing opiate-induced constipation with appropriate fgxw-myn-uiumxvh agents and dietary considerations. The patient was counseled on concern for caution with operating a motor vehicle while using opiate medications. A physical exam was performed and the patient's functional status was evaluated. All patients with back pain were advised against the bed rest greater than 4 days and were advised to return to normal activities. Pain score assessment was noted and the treatment plan was reviewed with the patient. All current medications, both prescribed and OTC were reviewed and reconciled on the [address] [place] [address] PAIN MANAGEMENT CONSULTATION Name: BETO SMITH Room #: REG [facility]..#: [id number] Admission: 03/30/19 Attend Phys: Chiquis ESTEPHANIE Keys Discharge: Date of : 38 Report #: [id number] electronic medical record. Tobacco screening was accomplished and smoking cessation was advised when indicated. BMI was noted and diet/exercise modification was recommended for all patients following outside normal parameters. I reviewed with the patient today their responsibilities to safeguard prescription medications, reviewed their responsibility to utilize medications only as prescribed by the physician. They are to seek and receive pain medications only from 1 physician group ( [facility]). They are to use 1 pharmacy and keep the clinic informed if they change pharmacies. Their responsibilities include making followup visits in a timely fashion and to avoid abrupt discontinuation of medication usage. Their responsibilities further include bringing their medications (bottles from the pharmacy with residual pills) to the visit for possible confirmation of pill counts and the patient understands it is their responsibility to submit to random drug screens to ensure both that the medications prescribed are present, and that no other controlled substances are present. All prescriptions provided today were generated electronically. PLAN: 1. We discussed treatment options with the patient today. The patient reports that thoracic facet injections were not beneficial in helping control any of her pain lasting only a day per her report, though she has been very active packing her house and moving to a smaller dwelling. 2. The patient reports that she has had a flare in her lower spine and sciatica on the right side. I encouraged her to take her gabapentin 2 times a day and continue her 300 mg at bedtime. If her pain does not subside since she is no longer moving, then she is instructed to call our office for a lumbar steroid epidural injection by Dr. Tono De La Cruz. Her previous one was in 2016, which she did state it was beneficial. Her pain is following the L3-L4 dermatomal distribution. 3. We will send scripts electronically for her hydrocodone 7.5/325, #100 for today for an 8-week release as well as gabapentin 100 mg b.i.d., quantity 60 with 2 refills and gabapentin 300 #30 with two refills for bedtime use. 4. The patient cautioned not to take her medications with her alprazolam and her Ambien due to benzodiazepine and opioid reactions. The patient verbalizes understanding. 5. The patient denies any problems with constipation or daytime sleepiness from her medications. The patient is seen today in collaboration with Dr. Tono De La Cruz. <ELECTRONICALLY SIGNED> By: Chiquis Keys 04/03/19 1250 [id number] Chiquis Keys /andrea
== END ==
LOC: PAIN 01-23 06:56
DX: M47.814 Spondylosis without myelopathy or radiculopathy, thoracic region (principal); M54.16 Radiculopathy, lumbar region; M79.7 Fibromyalgia; M19.90 Unspecified osteoarthritis, unspecified site; Z88.8 Allergy status to other drugs, medicaments and biological substances; Z91.013 Allergy to seafood; Z79.899 Other long term (current) drug therapy

== ENCOUNTER → 2019-06-29 | Outpatient (CLI) | payer OTHER ==
[~2019-06-29] MED LIST changes: +COZAAR 50 MG TA50 M1 PO; -COZAAR 50 MG TA50 M2 PO; +NEURONTIN 300M300 M2 PO; +ZOLOFT25 MG PO; -ZOLOFT50 MG PO
--- NOTE | 2019-06-29 15:41 | HPC ---
[facility] [place] [address] PAIN MANAGEMENT CONSULTATION Name: BETO SMITH Room #: REG [facility] Freddy.#: [id number] Admission: 06/29/19 Attend Phys: Chiquis Keys Discharge: Date of : 38 Report #: [id number] THIS REPORT FOR: cc: Nancy Francis MD, Jennifer S. MD Hocker, Amanda CNS ~ CC: Tono De La Cruz MD DATE OF SERVICE: 06/29/2019 CHIEF COMPLAINT: Thoracic spondylosis and lumbar radiculopathy. This is a telemed appointment due to the COVID-19 epidemic. Patient has given verbal consent for this audio visual telemed appointment from 9:46-10:02. HISTORY OF PRESENT ILLNESS: This is a very pleasant 78-year-old female who I am, speaking with for a telemed appointment. She is at her home. She has COPD and has not been leaving her home during the COVID outbreak. She states that she has been ordering her groceries online and does not feel safe to go out during this time due to her respiratory comorbidities. Today, she is requesting refills of her pain medications. The patient states that her pain is a 3/10 currently. She had taken her meds this morning. She finds that the hydrocodone is very beneficial in reducing her pain as well as her gabapentin. She reports that the majority of her pain is in her mid-back, but she continues to have this ongoing right sacroiliac pain that radiates down her right leg. She reports that any walking does increase her pain. She feels that heat and lying down as well as her medications are beneficial. She denies any problems with constipation or daytime sleepiness. The patient reports she was scheduled to have an x-ray and an MRI of her back from the Orthopedic surgeon prior to the COVID outbreak, so she has not had these radiology procedures performed at this time. ALLERGIES: SHRIMP. CURRENT LIST OF MEDICATIONS: Aspercreme, hydrocodone 7.5/325 p.r.n., gabapentin 100 mg b.i.d., gabapentin 300 mg at bedtime, pravastatin, Norvasc, buspirone, Tylenol, ibuprofen, Zyrtec, Cozaar, omeprazole, Xanax, Zoloft, vitamin D, vitamin B12, albuterol inhaler and Ambien. PQRS: 1. She has generalized osteoarthritis in her knees, shoulders and hands. Denies any rheumatoid arthritis. The patient did weigh herself for this telemed appointment. She weighed 151. I do not have her height or BMI. The patient did take her vital signs, it is 138/69 this morning and oxygen [place] 92[place] [address] PAIN MANAGEMENT CONSULTATION Name: BETO SMITH Room #: REG [facility].#: [id number] Admission: 06/29/19 Attend Phys: Chiquis Keys Discharge: Date of : 38 Report #: [id number] 2. Pain score is 3/10. 3. Denies dizziness. Does need help with walking and standing, has not fallen in the last 3 months. 4. The patient is not on any blood thinners, but does take medicine for hypertension. 5. Opiate therapy is greater than 6 weeks; therefore, an opioid signed contract is on the chart. Risk assessment tool is low. Functional assessment is 49/70. 6. Recreational drug use, she denies. She is a current smoker of half pack of cigarettes a day and does not drink alcohol. According to the prescription monitoring system, the patient is filling appropriately. She is due to fill her medications this week. Her morphine mEq is 30 MME per day. PHYSICAL EXAMINATION: This is a review of systems, she is alert and orientated 78-year-old female who is answering all my questions appropriately. She is a very good historian, placing her pain score at 3/10 today. She reports pain is significant in her right sacroiliac area that radiates down her right leg. This follows her L3-L4 dermatomal distribution. She tells me she uses a walker at all times. She does also have tenderness in her thoracic area at her bra line. IMPRESSION: 1. Chronic thoracic pain with thoracic spondylosis. 2. Osteoarthritis. 3. Fibromyalgia. 4. Lumbar radiculopathy. 5. Management of high risk medications under terms of written opioid agreement. We reviewed the fact that opiate medications are being used to provide analgesia adequate to support activities of daily living, not attempting to achieve a specific pain score on the 0-10 Visual Analog Scale. The current opiate medications are providing sufficient analgesia to allow the patient to participate in activities of daily living. The patient is not exhibiting any aberrant behavior suggestive of drug diversion. The patient is not having any adverse reactions to medications. The patient is not suffering from daytime somnolence or mental acuity changes. The patient is managing opiate-induced constipation with appropriate xltt-jah-qcdynqe agents and dietary considerations. The patient was counseled on concern for caution with operating a motor vehicle while using opiate medications. PLAN: 1. We discussed treatment options with the patient today. The patient finds her medications very beneficial averaging 3-4 tablets a day depending on her activity. We will electronically send hydrocodone 7.5/325, #100 tablets for today, 4-week and 8-week release. These will be sent by Dr. Tono De La Cruz. [facility] [place] [address] PAIN MANAGEMENT CONSULTATION Name: SARAHBETO SULLIVAN Room #: REG CL Julio#: [id number] Admission: 06/29/19 Attend Phys: Chiquis Keys Discharge: Date of : 38 Report #: [id number] 2. I will continue her gabapentin 300 mg at bedtime as well as her gabapentin during the daytime at 100 mg, though she is not needing that script today. 3. We again discussed the need for a possible injection. She has recently moved and has flared her lower back and right SI sacroiliac joint area. I encouraged her to possibly have an injection when she feels comfortable leaving the house and having this procedure during the COVID outbreak. I believe this will decrease some of her inflammation and pain that is causing in this area. The patient verbalizes understanding. She has had epidurals in the past, but not a sacroiliac joint injection. She will call for an appointment in the near future. 4. The patient is discussed on the phone for this telemed appointment in collaboration with Dr. Tono De La Cruz. <ELECTRONICALLY SIGNED> By: Chiquis Keys 06/29/19 1541 [id number] Chiquis Keys /nt
== END ==
LOC: TELEPC 06:40 → PAIN 10:16
DX: M47.814 Spondylosis without myelopathy or radiculopathy, thoracic region (principal); M54.16 Radiculopathy, lumbar region; M79.7 Fibromyalgia; F11.20 Opioid dependence, uncomplicated; M19.90 Unspecified osteoarthritis, unspecified site; Z88.8 Allergy status to other drugs, medicaments and biological substances; Z79.899 Other long term (current) drug therapy

== ENCOUNTER → 2019-09-04 | Outpatient (CLI) | payer OTHER ==
[~2019-09-04] VITALS: Ht 167.6 cm; Wt 69.5 kg
[~2019-09-04] MED LIST changes: +ZANAFLEX4 M2 PO
[2019-09-04 10:28] VITALS: BP 142/69
--- NOTE | 2019-09-04 10:47 | NUR ---
Pain Clinic Assessment: 1. History of Osteoarthritis: GENERALIZED BILATERAL KNEES RIGHT SHOULDER LEFT THUMB History of Rheumatoid Arthritis: DENIES 2. Height: 5 ft. 6 in. 167.6 cm. Weight: 153.2 lb. oz. 69.491 kg. Patient's BMI: 24.7 3. Vital Signs: BP: 142/69 Pulse: 61 Resp: 20 Temp: 02 Sat: 96 ECG Mon: 4. Pain Intensity: 8 5. Fall Risk: Dizziness: Y Needs help standing or walking: Y Fallen in the last 3 months: N Fall risk comments: 6. Patient on Blood Thinner: None 7. History of Hypertension: Y 8. Opioid Therapy greater than 6 weeks: Y Opiate Contract Signed: 09/25/15 9. Risk Assessment Tool Provided: 2 LOW RISK 10. Functional Assessment Tool: 11. Recreational Drug Use: Unknown Drug Type: Tobacco Use: Current Every Day Smoker Tobacco Type: Cigarettes Amount or Packs/day: 1 How Many Years: 60 Alcohol Use: No Frequency: Quant:
--- NOTE | 2019-09-05 07:51 | HPC ---
[facility] [place] [address] PAIN MANAGEMENT CONSULTATION Name: BETO SMITH Room #: REG [facility] Freddy.#: [id number] Admission: 09/04/19 Attend Phys: Chiquis Keys Discharge: Date of : 38 Report #: [id number] THIS REPORT FOR: cc: Nancy Francis MD, Jennifer S. MD Hocker, Amanda CNS ~ CC: Tono De La Cruz MD DATE OF SERVICE: 09/04/2019 CHIEF COMPLAINT: Thoracic spondylosis and lumbar radiculopathy. HISTORY OF PRESENT ILLNESS: This is an 78-year-old female who returns to the pain clinic today for refill of her opioid medications. Today, she is quite depressed and tearful through some of our appointment. She states that she has not had a very good 2020. She did have a melanoma removed from her lower extremity and another benign lesion removed on her scalp for skin cancer as well. She does continue to have some other ongoing health issues that she has been having examined from her primary doctor along with the COVID outbreak and being at home more frequently. She has become quite depressed. She states that she does have an appointment with her primary care doctor tomorrow and at that time may discuss antidepressant medicines. Today, she is reporting her pain score at 8/10, located in her thoracic area as well as her lower back that radiates into her legs. She feels that any walking or standing in her kitchen to prepare meals is affecting her pain. It is an aching, sharp pain. Her medications are beneficial, though she has been out a couple of days since she did not realize she had another prescription at the pharmacy. She said heat has also been beneficial in her lower back. She denies problems with constipation or daytime somnolence as a result of her opioid medications. ALLERGIES: SHRIMP. CURRENT LIST OF MEDICATIONS: Gabapentin 100 mg daily, gabapentin 300 mg at bedtime, hydrocodone 7.5/325 p.r.n., pravastatin, Norvasc, buspirone, ibuprofen, Flonase, omeprazole, alprazolam, vitamin D, vitamin B12, and Ambien. PQRS: 1. She has diffuse osteoarthritis in her knees, shoulders and back. Denies rheumatoid arthritis. 2. Height is 5 feet 6 inches, weight is 153, BMI is 24.7. 3. Vital signs 142/69, pulse is 61, respirations 20, oxygen sat is 96%. 4. Pain score is 8/10. 5. Complains of slight dizziness. Does need assistance with walking, uses a cane at times. Has not fallen in the last 3 months. 6. The patient is not on any blood thinners, but does take medicine for hypertension. Her opioid therapy is greater than 6 weeks; therefore, an opioid [address] [address] PAIN MANAGEMENT CONSULTATION Name: BETO SMITH Room #: REG CL Julio#: [id number] Admission: 09/04/19 Attend Phys: Chiquis Keys Discharge: Date of : 38 Report #: [id number] signed contract is on the chart. Risk assessment tool is low. Functional assessment is 58/70. 7. Recreational drug use, she denies. She does smoke about a pack of cigarettes a day and does not drink alcohol. According to the prescription monitoring system, the patient has filled 2 of her 3 prescriptions from her last appointment, though she is reporting she is out of her pain medications. We did call the pharmacy. There is one waiting to be filled. Her morphine milliequivalent according to the CDC guidelines is 30 MME per day. PHYSICAL EXAMINATION: GENERAL: This is alert and orientated, slightly depressed 78-year-old female reporting a pain score of 8/10 today. HEENT: Pupils equal, round and reactive to light. Equal ocular eye muscles are intact. She is wearing a mask and glasses. MUSCULOSKELETAL: She moves from sitting to standing position and walks with antalgic features. Tenderness in her thoracic area from T6-T9. Pain is increased with flexion and extension. She does have pain in the lumbar spine that radiates into her bilateral legs. Lower muscle strength judged to be symmetrical at 5/5 with good sensation from L1-S2. IMPRESSION: 1. Fibromyalgia. 2. Spondylosis of the thoracic spine. 3. Management of high risk medications under terms of written opioid agreement. 4. Depression. 5. Lumbar radiculopathy. We reviewed the fact that opiate medications are being used to provide analgesia adequate to support activities of daily living, not attempting to achieve a specific pain score on the 0-10 Visual Analog Scale. The current opiate medications are providing sufficient analgesia to allow the patient to participate in activities of daily living. The patient is not exhibiting any aberrant behavior suggestive of drug diversion. The patient is not having any adverse reactions to medications. The patient is not suffering from daytime somnolence or mental acuity changes. The patient is managing opiate-induced constipation with appropriate vxan-tic-rlkvyej agents and dietary considerations. The patient was counseled on concern for caution with operating a motor vehicle while using opiate medications PLAN: 1. We discussed treatment options with the patient today. The patients states that she is depressed. She has several ongoing health issues. She is being worked up from her primary care doctor for possible leukemia because at times she does have petechiae she states on her lower extremities, none [facility] [address] [place] [address] PAIN MANAGEMENT CONSULTATION Name: BETO SMITH Room #: REG [facility] Kim#: [id number] Admission: 09/04/19 Attend Phys: Chiquis Keys Discharge: Date of : 38 Report #: [id number] noted today. The patient also reports that she had a melanoma removed from her lower extremity and a benign from her head. She is wondering if we are able to help her depression or her primary care doctor. I encouraged her to discuss with her primary care doctor tomorrow, Prozac versus Cymbalta both medications do aid some with pain control as well as with depression. The patient verbalizes understanding. 2. We will refill her hydrocodone 7.5/325 today, quantity is 100. The patient has not filled her 8 week prescriptions, the pharmacy will fill for her today. Scripts provided by Dr. Tono De La Cruz for 4-week and 8-week release and these will be sent electronically. 3. The patient states that when she is walking her back becomes very tight. She is requesting a refill of her muscle relaxant that we had provided for her in 2018. I will send tizanidine 4 mg, #30 with 2 additional refills to her pharmacy. The patient to take this as needed for muscle spasms in her lower back. 4. We will refill her gabapentin 100 and 300 mg capsules as well. The patient was seen in collaboration today with Dr. Tono De La Cruz. <ELECTRONICALLY SIGNED> By: Chiquis Keys 09/05/19 0751 [id number] Chiquis Keys /nt
== END ==
LOC: PAIN 06:50
PROVIDERS: ATTEND Clinical Nurse Specialist Adult Health
DX: Z76.0 Encounter for issue of repeat prescription (principal); M47.24 Other spondylosis with radiculopathy, thoracic region; F32.9 Major depressive disorder, single episode, unspecified; Z79.891 Long term (current) use of opiate analgesic